=== PATIENT | male | born 1945 | race African-American/Black ===

== ENCOUNTER 2021-01-06 11:27 | Inpatient (IN) | payer MEDICARE, MEDICAID ==
[~2021-01-06] VITALS: Ht 170.2 cm; Wt 60.3 kg
[2021-01-06] MEDS ORDERED: ALBUTEROL (0.083%) 2.5MG/3ML NEB HHN STA (12:13)
[2021-01-06] MEDS ORDERED: NITROGLYCERIN OINT 1GM/INCH UDPKT TD ONE (12:15)
[2021-01-06] MEDS ORDERED: ASPIRIN 81MG TABLET PO ONE (12:15)
[2021-01-06 15:10] LABS: HEMOGLOBIN. 11.2 g/dL (14.0-18.0); MEAN CORPUSCULAR HEMOGLOBIN 30.8 pg (28.0-32.0); MEAN CORPUSCULAR VOLUME 93.3 fL (80.0-94.0); MEAN PLATELET VOLUME 8.7 fl (7.4-10.4); PLATELET 402 x1000/uL (130-400); RED BLOOD CELL COUNT 3.65 mill/uL (4.7-6.1); RED CELL DISTRIBUTION WIDTH 16.3 % (11.6-14.6)
[2021-01-06 15:12] LABS: CHLORIDE 95 mEq/L (98-107)
[2021-01-06 15:18] LABS: C REACTIVE PROTEIN QUANT 9.1 mg/L (0.0-3.0)
[2021-01-06 15:57] LABS: INR 0.9
[2021-01-06] MEDS ORDERED: PIPERACILLIN/TAZ 3.375G PREMIX 50 ML IV NR (16:00)
[2021-01-06] MEDS ORDERED: VANCOMYCIN 1 G PREMIX 200 ML IV NR (16:00)
[2021-01-06] MEDS ORDERED: ACETAMINOPHEN 325MG TABLET PO NR (16:00)
[2021-01-06 16:34] LABS: PLATELET ESTIMATE NORMAL
[2021-01-06] MEDS ORDERED: GUAIFENESIN 200MG/10ML SUGAR FREE UDC PO PRN (17:15)
[2021-01-06] MEDS ORDERED: ONDANSETRON HCL 4MG/2ML INJ IV PRN (17:15)
[2021-01-06] MEDS ORDERED: ACETAMINOPHEN 325MG TABLET PO PRN (17:15)
[2021-01-06] MEDS ORDERED: DEXTROSE 50% WATER 50ML SYRINGE IV PRN (18:30)
[2021-01-06] MEDS ORDERED: ALBUTEROL 6.7GM HFA INHALER ORI PRN (18:30)
[2021-01-06] MEDS: ENOXAPARIN 30MG/0.3ML SYR SUBCUT SCH (19:14)
[2021-01-06] MEDS: INSULIN LISPRO 100 UNITS/ML SUBCUT SCH (21:35)
[2021-01-06] MEDS: BLOOD SUGAR DIAGNOSTIC STRIP TEST SCH (21:35)
[2021-01-06 22:30] VITALS: BP 131/78
[2021-01-06] MEDS ORDERED: VANCOMYCIN 500 MG PREMIX 100 ML IV NR (23:00)
[2021-01-06] MEDS: PIPERACILLIN/TAZOBACTAM 3.375 G in DEXTROSE 5% WATER 50 ML IV SCH (23:57)
[2021-01-07] VITALS: BP 106/52
[2021-01-07] MEDS ORDERED: DOCU-138 PO (02:45)
[2021-01-07] MEDS ORDERED: MIDO10TA PO (02:45)
[2021-01-07] MEDS ORDERED: ASCO-339 PO (02:45)
[2021-01-07] MEDS ORDERED: TOPUD PO ×2 (02:45)
[2021-01-07] MEDS ORDERED: FERR325T6 PO (02:45)
[2021-01-07] MEDS ORDERED: SEVE800T8 PO (02:45)
[2021-01-07] MEDS ORDERED: TRAM50TA3 PO (02:45)
[2021-01-07] MEDS ORDERED: FOLI1TAB63 PO (02:45)
[2021-01-07 04:00] VITALS: BP 124/64
[2021-01-07] MEDS: BLOOD SUGAR DIAGNOSTIC STRIP TEST SCH ×4 (06:09→21:00)
[2021-01-07 08:00] VITALS: BP 136/62
[2021-01-07] MEDS: PIPERACILLIN/TAZOBACTAM 3.375 G in DEXTROSE 5% WATER 50 ML IV SCH ×2 (08:46→22:10)
[2021-01-07] MEDS: INSULIN LISPRO 100 UNITS/ML SUBCUT SCH ×4 (08:47→22:55)
[2021-01-07 09:39] LABS: HEMATOCRIT. 28.8 % (42.0-52.0); HEMOGLOBIN. 9.7 g/dL (14.0-18.0); MEAN CORPUSCULAR HEMOGLOBIN 31.2 pg (28.0-32.0); MEAN CORPUSCULAR VOLUME 92.7 fL (80.0-94.0); MEAN PLATELET VOLUME 8.1 fl (7.4-10.4); PLATELET 373 x1000/uL (130-400); RED BLOOD CELL COUNT 3.11 mill/uL (4.7-6.1); RED CELL DISTRIBUTION WIDTH 16.2 % (11.6-14.6)
[2021-01-07 09:49] LABS: CHLORIDE 97 mEq/L (98-107)
[2021-01-07 12:00] VITALS: BP 113/61
[2021-01-07 13:37] LABS: PLATELET ESTIMATE NORMAL
[2021-01-07 16:00] VITALS: BP 134/66
[2021-01-07 16:50] LABS: HEPATITIS B SURFACE ANTIGEN NEGATIVE
[2021-01-07] MEDS: ENOXAPARIN 30MG/0.3ML SYR SUBCUT SCH (18:05)
[2021-01-07 20:00] VITALS: BP 129/67
[2021-01-07] MEDS: ACETAMINOPHEN 325MG TABLET PO PRN (22:11)
[2021-01-07] MEDS: INSULIN GLARGINE UD 100 UNITS/ML SYR SUBCUT SCH (22:56)
[2021-01-08] VITALS: BP 129/72
[2021-01-08 04:00] VITALS: BP 132/69
[2021-01-08] MEDS: BLOOD SUGAR DIAGNOSTIC STRIP TEST SCH ×4 (06:42→21:19)
[2021-01-08 08:00] VITALS: BP 137/72
[2021-01-08] MEDS: INSULIN LISPRO 100 UNITS/ML SUBCUT SCH ×4 (09:24→21:22)
[2021-01-08] MEDS: PIPERACILLIN/TAZOBACTAM 3.375 G in DEXTROSE 5% WATER 50 ML IV SCH (09:25)
[2021-01-08 09:31] LABS: BASOPHILS % 0.4 % (0.0-2.0); EOSINOPHILS % 4.9 % (0.0-5.0); HEMATOCRIT. 27.2 % (42.0-52.0); HEMOGLOBIN. 9.2 g/dL (14.0-18.0); MEAN CORPUSCULAR HEMOGLOBIN 30.9 pg (28.0-32.0); MEAN CORPUSCULAR VOLUME 91.5 fL (80.0-94.0); MEAN PLATELET VOLUME 8.3 fl (7.4-10.4); MONOCYTES % 8.2 % (2.0-8.0); NEUTROPHILS % 77.5 % (40.0-76.0); PLATELET 369 x1000/uL (130-400); RED BLOOD CELL COUNT 2.98 mill/uL (4.7-6.1); RED CELL DISTRIBUTION WIDTH 16.3 % (11.6-14.6)
[2021-01-08 09:53] LABS: CHLORIDE 101 mEq/L (98-107)
[2021-01-08 10:04] LABS: PHOSPHORUS 4.8 mg/dL (2.5-4.9)
[2021-01-08 12:00] VITALS: BP 105/58
[2021-01-08 16:00] VITALS: BP 152/67
[2021-01-08] MEDS: ENOXAPARIN 30MG/0.3ML SYR SUBCUT SCH (18:13)
[2021-01-08 20:00] VITALS: BP 94/46
[2021-01-08] MEDS ORDERED: VANCOMYCIN 500 MG PREMIX 100 ML IV NR (20:00)
[2021-01-08] MEDS: INSULIN GLARGINE UD 100 UNITS/ML SYR SUBCUT SCH (21:21)
[2021-01-09] VITALS: BP 105/65
[2021-01-09] MEDS: PIPERACILLIN/TAZOBACTAM 3.375 G in DEXTROSE 5% WATER 50 ML IV SCH ×3 (00:13→20:58)
[2021-01-09 04:00] VITALS: BP 112/62
[2021-01-09 05:28] LABS: CHLORIDE 110 mEq/L (98-107)
[2021-01-09 05:36] LABS: PHOSPHORUS 4.2 mg/dL (2.5-4.9)
[2021-01-09 05:43] LABS: BASOPHILS % 0.6 % (0.0-2.0); EOSINOPHILS % 6.1 % (0.0-5.0); HEMATOCRIT. 30.5 % (42.0-52.0); LYMPHOCYTES % 10.1 % (20.0-50.0); MEAN CORPUSCULAR VOLUME 91.7 fL (80.0-94.0); MEAN PLATELET VOLUME 8.2 fl (7.4-10.4); MONOCYTES % 8.3 % (2.0-8.0); NEUTROPHILS % 74.9 % (40.0-76.0); PLATELET 398 x1000/uL (130-400); RED BLOOD CELL COUNT 3.32 mill/uL (4.7-6.1); RED CELL DISTRIBUTION WIDTH 16.5 % (11.6-14.6)
[2021-01-09] MEDS: BLOOD SUGAR DIAGNOSTIC STRIP TEST SCH ×4 (06:56→20:58)
[2021-01-09 08:15] VITALS: BP 117/66
[2021-01-09] MEDS: INSULIN LISPRO 100 UNITS/ML SUBCUT SCH ×5 (08:19→21:44)
[2021-01-09 12:00] VITALS: BP 122/49
[2021-01-09 16:12] VITALS: BP 127/60
[2021-01-09] MEDS: ENOXAPARIN 30MG/0.3ML SYR SUBCUT SCH (18:13)
[2021-01-09 20:00] VITALS: BP 117/55
[2021-01-09] MEDS: INSULIN GLARGINE UD 100 UNITS/ML SYR SUBCUT SCH (21:46)
[2021-01-10] VITALS (7 sets, daily range): BP systolic 98–142; BP diastolic 49–76
[2021-01-10 05:42] LABS: CHLORIDE 111 mEq/L (98-107)
[2021-01-10 05:51] LABS: BASOPHILS % 0.8 % (0.0-2.0); EOSINOPHILS % 7.5 % (0.0-5.0); HEMATOCRIT. 28.8 % (42.0-52.0); HEMOGLOBIN. 9.4 g/dL (14.0-18.0); LYMPHOCYTES % 13.6 % (20.0-50.0); MEAN CORPUSCULAR HEMOGLOBIN 30.5 pg (28.0-32.0); MEAN CORPUSCULAR VOLUME 93.9 fL (80.0-94.0); MEAN PLATELET VOLUME 8.3 fl (7.4-10.4); MONOCYTES % 10.8 % (2.0-8.0); NEUTROPHILS % 67.3 % (40.0-76.0); PLATELET 390 x1000/uL (130-400); RED BLOOD CELL COUNT 3.07 mill/uL (4.7-6.1); RED CELL DISTRIBUTION WIDTH 16.8 % (11.6-14.6)
[2021-01-10] MEDS: BLOOD SUGAR DIAGNOSTIC STRIP TEST SCH ×4 (06:31→21:55)
[2021-01-10] MEDS: INSULIN LISPRO 100 UNITS/ML SUBCUT SCH ×7 (07:50→21:00)
[2021-01-10] MEDS ORDERED: GUAIFENESIN/DM 600MG/30MG ER TAB 12HR PO PRN (08:15)
[2021-01-10] MEDS: PIPERACILLIN/TAZOBACTAM 3.375 G in DEXTROSE 5% WATER 50 ML IV SCH ×2 (08:51→21:52)
[2021-01-10] MEDS: GUAIFENESIN-DM 200MG-20MG/10ML UDC PO PRN ×2 (17:10→21:55)
[2021-01-10] MEDS: ENOXAPARIN 30MG/0.3ML SYR SUBCUT SCH (18:04)
[2021-01-10] MEDS: ACETAMINOPHEN 325MG TABLET PO PRN (21:52)
[2021-01-10] MEDS: INSULIN GLARGINE UD 100 UNITS/ML SYR SUBCUT SCH (21:56)
[2021-01-10 22:19] LABS: HEPATITIS B SURFACE ANTIGEN NEGATIVE
[2021-01-11 00:13] VITALS: BP 147/63
[2021-01-11 04:00] VITALS: BP 112/60
[2021-01-11] MEDS: BLOOD SUGAR DIAGNOSTIC STRIP TEST SCH ×4 (06:34→21:20)
[2021-01-11 06:36] LABS: CHLORIDE 109 mEq/L (98-107)
[2021-01-11] MEDS: INSULIN LISPRO 100 UNITS/ML SUBCUT SCH ×7 (06:36→21:20)
[2021-01-11 06:50] LABS: BASOPHILS % 0.9 % (0.0-2.0); EOSINOPHILS % 9.8 % (0.0-5.0); HEMATOCRIT. 26.1 % (42.0-52.0); HEMOGLOBIN. 8.8 g/dL (14.0-18.0); LYMPHOCYTES % 16.4 % (20.0-50.0); MEAN CORPUSCULAR HEMOGLOBIN 31.6 pg (28.0-32.0); MEAN PLATELET VOLUME 8.3 fl (7.4-10.4); MONOCYTES % 10.5 % (2.0-8.0); NEUTROPHILS % 62.4 % (40.0-76.0); PLATELET 384 x1000/uL (130-400); RED BLOOD CELL COUNT 2.78 mill/uL (4.7-6.1); RED CELL DISTRIBUTION WIDTH 16.3 % (11.6-14.6)
[2021-01-11] MEDS: PIPERACILLIN/TAZOBACTAM 3.375 G in DEXTROSE 5% WATER 50 ML IV SCH ×2 (07:50→21:18)
[2021-01-11 08:00] VITALS: BP 155/70
[2021-01-11] MEDS ORDERED: TUSSL PO (08:44)
[2021-01-11] MEDS ORDERED: ALBU6.7H9 ORI (08:44)
[2021-01-11 12:00] VITALS: BP 134/70
[2021-01-11 16:00] VITALS: BP 118/71
[2021-01-11] MEDS ORDERED: VANCOMYCIN 500 MG PREMIX 100 ML IV NR (17:00)
[2021-01-11] MEDS: ENOXAPARIN 30MG/0.3ML SYR SUBCUT SCH (18:15)
[2021-01-11 20:00] VITALS: BP 129/61
[2021-01-11] MEDS ORDERED: EPOETIN ALFA-EPBX 10,000 UNIT/ML VIAL SUBCUT SCH (21:00)
[2021-01-11] MEDS: INSULIN GLARGINE UD 100 UNITS/ML SYR SUBCUT SCH (21:20)
[2021-01-12] VITALS: BP 159/82
[2021-01-12 04:00] VITALS: BP 98/60
[2021-01-12] MEDS: BLOOD SUGAR DIAGNOSTIC STRIP TEST SCH ×2 (06:45→12:15)
[2021-01-12] MEDS: INSULIN LISPRO 100 UNITS/ML SUBCUT SCH ×4 (06:45→12:19)
[2021-01-12 08:00] VITALS: BP 133/62
[2021-01-12 12:00] VITALS: BP 115/55
[2021-01-12 13:39] VITALS: BP 133/62
== END 2021-01-12 14:44 | DRG 871 ==
LOC: ER 11:43 → EDBEDREQTM 16:21 → EDBEDREQ 16:21 → SUPCPDRO 16:53 → MICUSO 19:03 → 6WST 21:13
PROVIDERS: ADMIT Internal Medicine; ATTEND Internal Medicine
PROC: 5A1D70Z Performance of Urinary Filtration, Intermittent, Less than 6 Hours Per Day (ICD-10-PCS; principal; 2021-01-07)
PROC: 5A1D70Z Performance of Urinary Filtration, Intermittent, Less than 6 Hours Per Day (ICD-10-PCS; 2021-01-10)
PROC: 5A1D70Z Performance of Urinary Filtration, Intermittent, Less than 6 Hours Per Day (ICD-10-PCS; 2021-01-12)
DX: A41.9 Sepsis, unspecified organism (principal); N18.6 End stage renal disease; I12.0 Hypertensive chronic kidney disease with stage 5 chronic kidney disease or end stage renal disease; E46 Unspecified protein-calorie malnutrition; E87.1 Hypo-osmolality and hyponatremia; E11.22 Type 2 diabetes mellitus with diabetic chronic kidney disease; E11.40 Type 2 diabetes mellitus with diabetic neuropathy, unspecified; E78.00 Pure hypercholesterolemia, unspecified; J44.9 Chronic obstructive pulmonary disease, unspecified; K21.9 Gastro-esophageal reflux disease without esophagitis; R65.20 Severe sepsis without septic shock; E11.65 Type 2 diabetes mellitus with hyperglycemia; E11.51 Type 2 diabetes mellitus with diabetic peripheral angiopathy without gangrene; R07.2 Precordial pain; E78.5 Hyperlipidemia, unspecified; G40.909 Epilepsy, unspecified, not intractable, without status epilepticus; I87.8 Other specified disorders of veins; N40.0 Benign prostatic hyperplasia without lower urinary tract symptoms; E55.9 Vitamin D deficiency, unspecified; I95.3 Hypotension of hemodialysis; R00.0 Tachycardia, unspecified; G90.9 Disorder of the autonomic nervous system, unspecified; Z86.16 Personal history of COVID-19; Z99.2 Dependence on renal dialysis; Z86.73 Personal history of transient ischemic attack (TIA), and cerebral infarction without residual deficits; Z82.49 Family history of ischemic heart disease and other diseases of the circulatory system; Z68.20 Body mass index [BMI] 20.0-20.9, adult; Z20.822 Contact with and (suspected) exposure to COVID-19
CPT/HCPCS: 36415; 71045; 71046; 80053; 80202; 82728; 82962; 83036; 83605; 83735; 84100; 84145; 84484; 85025; 85384; 86140; 86705; 86709; 86803; 87340; 87426; 93005; 94640; 99291; J0885; J1650; J1815; J2543; J3370; J7040; J7060

== ENCOUNTER 2021-02-01 15:40 | Emergency (ER) | payer MEDICARE, MEDICAID ==
[~2021-02-01] VITALS: Ht 175.3 cm; Wt 60.0 kg
[~2021-02-01 15:40] MED LIST: ASCO-339 PO; DOCU-138 PO; FERR325T6 PO; FOLI1TAB63 PO; MIDO10TA PO; SEVE800T8 PO; TOPUD PO; TRAM50TA3 PO
[2021-02-01 16:49] LABS: CHLORIDE 97 mEq/L (98-107)
[2021-02-01 16:50] LABS: HEMATOCRIT. 30.6 % (42.0-52.0); HEMOGLOBIN. 10.6 g/dL (14.0-18.0); MEAN CORPUSCULAR HEMOGLOBIN 32.7 pg (28.0-32.0); MEAN CORPUSCULAR VOLUME 94.1 fL (80.0-94.0); MEAN PLATELET VOLUME 7.8 fl (7.4-10.4); PLATELET 405 x1000/uL (130-400); RED BLOOD CELL COUNT 3.25 mill/uL (4.7-6.1)
[2021-02-01 17:16] LABS: PLATELET ESTIMATE INCREASED
[2021-02-02] MEDS ORDERED: CLONIDINE 0.1MG TABLET PO ONE (09:00)
[2021-02-02 10:22] VITALS: BP 144/78
== END 2021-02-02 10:16 ==
LOC: ER 15:40
DX: R07.89 Other chest pain (principal); E11.22 Type 2 diabetes mellitus with diabetic chronic kidney disease; I12.0 Hypertensive chronic kidney disease with stage 5 chronic kidney disease or end stage renal disease; N18.6 End stage renal disease; E78.00 Pure hypercholesterolemia, unspecified; E03.9 Hypothyroidism, unspecified; Z99.2 Dependence on renal dialysis
CPT/HCPCS: 36415; 71045; 80053; 84484; 85025; 93005; 99285

== ENCOUNTER 2021-03-13 18:52 | Emergency (ER) | payer MEDICARE, MEDICAID ==
[~2021-03-13] VITALS: Ht 167.6 cm; Wt 68.0 kg
[2021-03-13 20:36] LABS: BASOPHILS % 0.9 % (0.0-2.0); EOSINOPHILS % 4.7 % (0.0-5.0); HEMATOCRIT. 27.9 % (42.0-52.0); HEMOGLOBIN. 9.6 g/dL (14.0-18.0); LYMPHOCYTES % 15.1 % (20.0-50.0); MEAN CORPUSCULAR HEMOGLOBIN 31.6 pg (28.0-32.0); MEAN CORPUSCULAR VOLUME 92.3 fL (80.0-94.0); MEAN PLATELET VOLUME 7.6 fl (7.4-10.4); MONOCYTES % 7.9 % (2.0-8.0); NEUTROPHILS % 71.4 % (40.0-76.0); PLATELET 442 x1000/uL (130-400); RED BLOOD CELL COUNT 3.03 mill/uL (4.7-6.1); RED CELL DISTRIBUTION WIDTH 15.6 % (11.6-14.6)
[2021-03-13 20:45] LABS: CHLORIDE 106 mEq/L (98-107)
[2021-03-13 22:47] LABS: INR 0.9; PROTHROMBIN TIME 9.9 sec (9.6-11.0)
[2021-03-13 23:32] LABS: CLARITY URINE TURBID (CLEAR); COLOR URINE YELLOW (YELLOW); KETONES URINE NEGATIVE (NEGATIVE); LEUKOCYTE ESTERASE URINE 3+ (NEGATIVE); NITRITE URINE NEGATIVE (NEGATIVE); OCCULT BLOOD URINE 2+ (NEGATIVE); PH URINE 8.5 (4.5-8.0); PROTEIN URINE 2+ (NEGATIVE); SPECIFIC GRAVITY URINE 1.013 (1.005-1.030); UROBILINOGEN URINE 0.2 E.U./dL (0.2-1.0)
[2021-03-13] MEDS ORDERED: CEPH500T MT (23:43)
[2021-03-13] MEDS ORDERED: CEFTRIAXONE 1 G PREMIX 50 ML IV NR (23:45)
[2021-03-14 09:18] VITALS: BP 164/83
== END 2021-03-14 09:21 | disposition home or self-care (01) ==
LOC: ER 18:52 → CANBEDREQ 03-14 08:02 → ER 03-14 09:21
DX: N39.0 Urinary tract infection, site not specified (principal); D64.9 Anemia, unspecified; E11.9 Type 2 diabetes mellitus without complications; E78.00 Pure hypercholesterolemia, unspecified; Z99.2 Dependence on renal dialysis; Z79.899 Other long term (current) drug therapy; Z88.6 Allergy status to analgesic agent
CPT/HCPCS: 36415; 71045; 74176; 80053; 81003; 83605; 83690; 84145; 84484; 85025; 85610; 87040; 87077; 87086; 87186; 93005; 96374; 99285; J0696

== ENCOUNTER 2021-04-22 11:11 | Inpatient (IN) | payer MEDICARE, MEDICAID ==
[~2021-04-22] VITALS: Ht 180.3 cm; Wt 58.3 kg
[~2021-04-22 11:11] MED LIST changes: +CEPH500T MT
[2021-04-22] MEDS ORDERED: MORPHINE SULFATE 4 MG/ML CPJ (NOT FOR IM USE) IV STA (12:24)
[2021-04-22 12:49] LABS: HEMATOCRIT. 30.6 % (42.0-52.0); HEMOGLOBIN. 10.1 g/dL (14.0-18.0); MEAN CORPUSCULAR HEMOGLOBIN 29.8 pg (28.0-32.0); MEAN CORPUSCULAR VOLUME 90.5 fL (80.0-94.0); MEAN PLATELET VOLUME 7.6 fl (7.4-10.4); PLATELET 348 x1000/uL (130-400); RED BLOOD CELL COUNT 3.38 mill/uL (4.7-6.1); RED CELL DISTRIBUTION WIDTH 16.9 % (11.6-14.6)
[2021-04-22 12:58] LABS: CHLORIDE 97 mEq/L (98-107)
[2021-04-22 13:25] LABS: PLATELET ESTIMATE NORMAL
[2021-04-22] MEDS ORDERED: CEFTRIAXONE 1 G PREMIX 50 ML IV ONE (15:30)
[2021-04-22] MEDS ORDERED: IPRATROPIUM/ALBUTEROL 0.5-3(2.5)MG/3ML NEB NEB PRN (21:00)
[2021-04-22] MEDS ORDERED: CLONIDINE 0.1MG TABLET PO PRN (21:00)
[2021-04-22] MEDS: DEXT 5%/LACTATED RINGERS 1,000 ML IV SCH (21:00)
[2021-04-22] MEDS ORDERED: DOCUSATE SODIUM 100MG CAPSULE PO PRN (21:00)
[2021-04-22] MEDS ORDERED: ONDANSETRON HCL 4MG/2ML INJ IV PRN (21:00)
[2021-04-22] MEDS ORDERED: NITROGLYCERIN 0.4MG TABLET SL SL PRN (21:00)
[2021-04-22] MEDS ORDERED: MAGNESIUM/ALUMINUM HYDROXIDE/SIMETHICONE 30ML UDC PO PRN (21:00)
[2021-04-22] MEDS ORDERED: ZOLPIDEM TARTRATE 5MG TABLET PO PRN (21:00)
[2021-04-22] MEDS ORDERED: GUAIFENESIN 200MG/10ML SUGAR FREE UDC PO PRN (21:00)
[2021-04-22] MEDS ORDERED: ACETAMINOPHEN 325MG TABLET PO PRN ×2 (21:00)
[2021-04-22] MEDS ORDERED: DIPHENHYDRAMINE 50MG/ML VIAL IV PRN (21:00)
[2021-04-22] MEDS ORDERED: NALOXONE HCL 0.4MG/ML VIAL IV PRN (21:45)
[2021-04-22] MEDS ORDERED: PIPERACILLIN/TAZ 3.375G PREMIX 50 ML IV NR (22:00)
[2021-04-23] VITALS (7 sets, daily range): BP systolic 114–131; BP diastolic 62–80
[2021-04-23] MEDS: PIPERACILLIN/TAZOBACTAM 3.375 G in DEXTROSE 5% WATER 50 ML IV SCH ×2 (06:07→21:28)
[2021-04-23] MEDS: PANTOPRAZOLE SODIUM 40 MG/VIAL IV SCH (08:43)
[2021-04-23] MEDS: ENOXAPARIN 30MG/0.3ML SYR SUBCUT SCH (08:43)
[2021-04-23] MEDS: MORPHINE SULFATE 2 MG/ML CPJ (NOT FOR IM USE) IV PRN ×2 (08:48→19:02)
[2021-04-23 11:52] LABS: HEMATOCRIT. 36.3 % (42.0-52.0); HEMOGLOBIN. 11.6 g/dL (14.0-18.0); MEAN CORPUSCULAR HEMOGLOBIN 29.1 pg (28.0-32.0); MEAN CORPUSCULAR VOLUME 90.5 fL (80.0-94.0); MEAN PLATELET VOLUME 8.4 fl (7.4-10.4); PLATELET 434 x1000/uL (130-400); RED CELL DISTRIBUTION WIDTH 16.9 % (11.6-14.6)
[2021-04-23] MEDS ORDERED: DEXTROSE 50% WATER 50ML SYRINGE IV PRN (12:00)
[2021-04-23 12:02] LABS: CHLORIDE 93 mEq/L (98-107)
[2021-04-23 12:06] LABS: PHOSPHORUS 5.4 mg/dL (2.5-4.9)
[2021-04-23 12:44] LABS: PLATELET ESTIMATE SLIGHTLY INCREASED
[2021-04-23] MEDS: INSULIN LISPRO 100 UNITS/ML SUBCUT SCH ×3 (13:14→21:00)
[2021-04-23] MEDS ORDERED: LIDOCAINE HCL 1% 20ML VIAL (Pyxis) INJ ONE (15:24)
[2021-04-23] MEDS: BLOOD SUGAR DIAGNOSTIC STRIP TEST SCH ×2 (16:40→21:27)
[2021-04-23] MEDS: DEXT 5%/LACTATED RINGERS 1,000 ML IV SCH (18:20)
[2021-04-24] VITALS: BP 113/67
[2021-04-24] MEDS: MORPHINE SULFATE 2 MG/ML CPJ (NOT FOR IM USE) IV PRN ×3 (00:23→11:59)
[2021-04-24 04:00] VITALS: BP 158/64
[2021-04-24] MEDS: INSULIN LISPRO 100 UNITS/ML SUBCUT SCH ×4 (06:01→22:21)
[2021-04-24] MEDS: BLOOD SUGAR DIAGNOSTIC STRIP TEST SCH ×4 (06:02→21:00)
[2021-04-24 08:00] VITALS: BP 116/67
[2021-04-24] MEDS: PIPERACILLIN/TAZOBACTAM 3.375 G in DEXTROSE 5% WATER 50 ML IV SCH ×2 (11:58→23:01)
[2021-04-24 12:00] VITALS: BP 149/71
[2021-04-24] MEDS: PANTOPRAZOLE SODIUM 40 MG/VIAL IV SCH (12:56)
[2021-04-24] MEDS: ENOXAPARIN 30MG/0.3ML SYR SUBCUT SCH (12:56)
[2021-04-24] MEDS: DEXT 5%/LACTATED RINGERS 1,000 ML IV SCH ×2 (13:17→22:20)
[2021-04-24 16:00] VITALS: BP 122/53
[2021-04-24 20:00] VITALS: BP_SYST 118; BP_SYST 136; BP_DIAS 69; BP_DIAS 90
[2021-04-25] VITALS: BP 112/56
[2021-04-25] MEDS: MORPHINE SULFATE 2 MG/ML CPJ (NOT FOR IM USE) IV PRN (01:57)
[2021-04-25 04:00] VITALS: BP 102/34
[2021-04-25] MEDS: BLOOD SUGAR DIAGNOSTIC STRIP TEST SCH ×4 (06:31→21:00)
[2021-04-25] MEDS: INSULIN LISPRO 100 UNITS/ML SUBCUT SCH ×4 (06:38→21:00)
[2021-04-25 07:08] LABS: BASOPHILS % 0.4 % (0.0-2.0); EOSINOPHILS % 2.8 % (0.0-5.0); HEMATOCRIT. 29.1 % (42.0-52.0); HEMOGLOBIN. 9.6 g/dL (14.0-18.0); LYMPHOCYTES % 7.6 % (20.0-50.0); MEAN CORPUSCULAR HEMOGLOBIN 29.7 pg (28.0-32.0); MEAN CORPUSCULAR VOLUME 90.3 fL (80.0-94.0); MEAN PLATELET VOLUME 8.4 fl (7.4-10.4); MONOCYTES % 9.7 % (2.0-8.0); NEUTROPHILS % 79.5 % (40.0-76.0); PLATELET 387 x1000/uL (130-400); RED BLOOD CELL COUNT 3.23 mill/uL (4.7-6.1); RED CELL DISTRIBUTION WIDTH 16.6 % (11.6-14.6)
[2021-04-25 07:25] LABS: CHLORIDE 102 mEq/L (98-107)
[2021-04-25 07:39] LABS: PHOSPHORUS 4.6 mg/dL (2.5-4.9)
[2021-04-25 08:00] VITALS: BP 119/68
[2021-04-25] MEDS: ENOXAPARIN 30MG/0.3ML SYR SUBCUT SCH (09:25)
[2021-04-25] MEDS: PIPERACILLIN/TAZOBACTAM 3.375 G in DEXTROSE 5% WATER 50 ML IV SCH ×2 (09:25→21:50)
[2021-04-25] MEDS: PANTOPRAZOLE SODIUM 40 MG/VIAL IV SCH (09:25)
[2021-04-25 12:00] VITALS: BP 125/57
[2021-04-25 16:00] VITALS: BP 143/68
[2021-04-25 18:23] LABS: HEPATITIS B SURFACE ANTIGEN NEGATIVE
[2021-04-25 20:00] VITALS: BP 128/62
[2021-04-26] VITALS: BP 118/63
[2021-04-26 04:00] VITALS: BP 128/72
[2021-04-26] MEDS: DEXT 5%/LACTATED RINGERS 1,000 ML IV SCH (05:10)
[2021-04-26] MEDS: BLOOD SUGAR DIAGNOSTIC STRIP TEST SCH ×4 (05:42→21:00)
[2021-04-26] MEDS: INSULIN LISPRO 100 UNITS/ML SUBCUT SCH ×4 (06:14→21:00)
[2021-04-26 08:00] VITALS: BP 124/58
[2021-04-26] MEDS: ENOXAPARIN 30MG/0.3ML SYR SUBCUT SCH (08:43)
[2021-04-26] MEDS: PANTOPRAZOLE SODIUM 40 MG/VIAL IV SCH (08:43)
[2021-04-26] MEDS: PIPERACILLIN/TAZOBACTAM 3.375 G in DEXTROSE 5% WATER 50 ML IV SCH ×2 (08:43→21:49)
[2021-04-26 12:00] VITALS: BP 140/64
[2021-04-26 16:00] VITALS: BP 108/70
[2021-04-26 20:00] VITALS: BP 134/67
[2021-04-26] MEDS: MORPHINE SULFATE 2 MG/ML CPJ (NOT FOR IM USE) IV PRN (20:37)
[2021-04-27] VITALS: BP 118/62
[2021-04-27 04:00] VITALS: BP 188/53
[2021-04-27] MEDS: DEXT 5%/LACTATED RINGERS 1,000 ML IV SCH ×2 (05:28→23:19)
[2021-04-27] MEDS: FAMOTIDINE 20MG/2ML VIAL IV SCH (05:28)
[2021-04-27] MEDS: MORPHINE SULFATE 2 MG/ML CPJ (NOT FOR IM USE) IV PRN (05:29)
[2021-04-27] MEDS: BLOOD SUGAR DIAGNOSTIC STRIP TEST SCH ×4 (05:57→20:56)
[2021-04-27] MEDS: INSULIN LISPRO 100 UNITS/ML SUBCUT SCH ×4 (06:08→21:01)
[2021-04-27 08:00] VITALS: BP 154/71
[2021-04-27] MEDS: ENOXAPARIN 30MG/0.3ML SYR SUBCUT SCH (08:43)
[2021-04-27] MEDS: PIPERACILLIN/TAZOBACTAM 3.375 G in DEXTROSE 5% WATER 50 ML IV SCH (08:43)
[2021-04-27 11:45] LABS: INR 1.1; PROTHROMBIN TIME 11.9 sec (9.6-11.0)
[2021-04-27 12:00] VITALS: BP 129/60
[2021-04-27 13:23] LABS: CHLORIDE 103 mEq/L (98-107); HEMATOCRIT. 27.8 % (42.0-52.0); HEMOGLOBIN. 9.3 g/dL (14.0-18.0); MEAN CORPUSCULAR VOLUME 89.3 fL (80.0-94.0); MEAN PLATELET VOLUME 8.3 fl (7.4-10.4); PLATELET 379 x1000/uL (130-400); RED BLOOD CELL COUNT 3.11 mill/uL (4.7-6.1); RED CELL DISTRIBUTION WIDTH 16.2 % (11.6-14.6)
[2021-04-27 14:31] LABS: PLATELET ESTIMATE NORMAL
[2021-04-27 16:00] VITALS: BP 153/76
[2021-04-27 20:00] VITALS: BP 118/76
[2021-04-27] MEDS ORDERED: EPOETIN ALFA-EPBX 4,000 UNIT/ML VIAL SUBCUT SCH (21:00)
[2021-04-28] VITALS (21 sets, daily range): BP systolic 130–172; BP diastolic 68–98
[2021-04-28] MEDS ORDERED: MORPHINE SULFATE 2 MG/ML CPJ (NOT FOR IM USE) IV PRN ×2 (03:30→08:45)
[2021-04-28] MEDS: FAMOTIDINE 20MG/2ML VIAL IV SCH (05:52)
[2021-04-28] MEDS: BLOOD SUGAR DIAGNOSTIC STRIP TEST SCH ×4 (05:52→20:25)
[2021-04-28] MEDS: INSULIN LISPRO 100 UNITS/ML SUBCUT SCH ×4 (06:04→20:50)
[2021-04-28] MEDS ORDERED: FENTANYL CITRATE/PF 50MCG/ML 2ML VIAL ONE (07:33)
[2021-04-28] MEDS ORDERED: IOHEXOL-300 50 ML BOTTLE IV ONE (07:34)
[2021-04-28] MEDS ORDERED: LIDOCAINE HCL 1% 20ML VIAL (Pyxis) INJ ONE (07:34)
[2021-04-28] MEDS ORDERED: FENTANYL CITRATE/PF 50MCG/ML 2ML VIAL IV ONE (08:30)
[2021-04-28] MEDS: ENOXAPARIN 30MG/0.3ML SYR SUBCUT SCH (09:00)
[2021-04-28] MEDS ORDERED: TRAMADOL 50MG TABLET PO PRN (13:00)
[2021-04-28] MEDS: DEXT 5%/LACTATED RINGERS 1,000 ML IV SCH (17:07)
[2021-04-29] VITALS: BP 141/75
[2021-04-29 04:00] VITALS: BP 137/70
[2021-04-29] MEDS: BLOOD SUGAR DIAGNOSTIC STRIP TEST SCH ×2 (06:40→11:40)
[2021-04-29] MEDS: FAMOTIDINE 20MG/2ML VIAL IV SCH (06:42)
[2021-04-29] MEDS: INSULIN LISPRO 100 UNITS/ML SUBCUT SCH ×2 (06:43→12:40)
[2021-04-29 08:00] VITALS: BP 159/70
[2021-04-29] MEDS: ENOXAPARIN 30MG/0.3ML SYR SUBCUT SCH (09:48)
[2021-04-29 12:00] VITALS: BP 143/78
[2021-04-29] MEDS: DEXT 5%/LACTATED RINGERS 1,000 ML IV SCH (13:02)
[2021-04-29 13:03] VITALS: BP 143/78
[2021-04-29 17:10] LABS: HEPATITIS B SURFACE ANTIGEN NEGATIVE
[2021-04-29] MEDS ORDERED: EPOETIN ALFA-EPBX 10,000 UNIT/ML VIAL SUBCUT SCH (21:00)
== END 2021-04-29 15:30 | DRG 444 ==
LOC: ER 11:25 → 7EST 16:35 → EDBEDREQ 16:43 → EDBEDREQTM 16:43 → CANRESERV 20:25 → ENRESERV 20:25 → SUPCPDRO 21:39 → EDBEDREQTM 22:18 → EDBEDREQSVC 22:18 → ENRESERV 23:03
PROVIDERS: ADMIT Internal Medicine; ATTEND Internal Medicine
PROC: 02HV33Z Insertion of Infusion Device into Superior Vena Cava, Percutaneous Approach (ICD-10-PCS; principal; 2021-04-23)
PROC: B548ZZA Ultrasonography of Superior Vena Cava, Guidance (ICD-10-PCS; 2021-04-23)
PROC: 5A1D70Z Performance of Urinary Filtration, Intermittent, Less than 6 Hours Per Day (ICD-10-PCS; 2021-04-25)
PROC: 5A1D70Z Performance of Urinary Filtration, Intermittent, Less than 6 Hours Per Day (ICD-10-PCS; 2021-04-27)
PROC: 0F9430Z Drainage of Gallbladder with Drainage Device, Percutaneous Approach (ICD-10-PCS; 2021-04-28)
PROC: 5A1D70Z Performance of Urinary Filtration, Intermittent, Less than 6 Hours Per Day (ICD-10-PCS; 2021-04-29)
DX: K80.00 Calculus of gallbladder with acute cholecystitis without obstruction (principal); E43 Unspecified severe protein-calorie malnutrition; N18.6 End stage renal disease; I50.33 Acute on chronic diastolic (congestive) heart failure; I13.2 Hypertensive heart and chronic kidney disease with heart failure and with stage 5 chronic kidney disease, or end stage renal disease; E87.1 Hypo-osmolality and hyponatremia; T82.898A Other specified complication of vascular prosthetic devices, implants and grafts, initial encounter; R65.10 Systemic inflammatory response syndrome (SIRS) of non-infectious origin without acute organ dysfunction; D63.8 Anemia in other chronic diseases classified elsewhere; E11.22 Type 2 diabetes mellitus with diabetic chronic kidney disease; E78.00 Pure hypercholesterolemia, unspecified; Y83.2 Surgical operation with anastomosis, bypass or graft as the cause of abnormal reaction of the patient, or of later complication, without mention of misadventure at the time of the procedure; E11.21 Type 2 diabetes mellitus with diabetic nephropathy; E11.40 Type 2 diabetes mellitus with diabetic neuropathy, unspecified; F02.80 Dementia in other diseases classified elsewhere, unspecified severity, without behavioral disturbance, psychotic disturbance, mood disturbance, and anxiety; E78.5 Hyperlipidemia, unspecified; Z20.822 Contact with and (suspected) exposure to COVID-19; E55.9 Vitamin D deficiency, unspecified; I95.3 Hypotension of hemodialysis; N35.919 Unspecified urethral stricture, male, unspecified site; R07.89 Other chest pain; G40.909 Epilepsy, unspecified, not intractable, without status epilepticus; Z82.49 Family history of ischemic heart disease and other diseases of the circulatory system; Z86.73 Personal history of transient ischemic attack (TIA), and cerebral infarction without residual deficits; Z99.2 Dependence on renal dialysis; Z88.8 Allergy status to other drugs, medicaments and biological substances; Z79.899 Other long term (current) drug therapy; Z79.4 Long term (current) use of insulin; Z98.1 Arthrodesis status
CPT/HCPCS: 36415; 36573; 47490; 71045; 71275; 74174; 76705; 78227; 80053; 82962; 83036; 83735; 84100; 85025; 86705; 86709; 86803; 87340; 87426; 93970; 99152; 99153; 99291; A9537; C1725; C1729; C1769; C1893; C9113; J0696; J0885; J1650; J1815; J2270; J2543; J3010; J3490; J7040; J7060; L8514; Q9967; G0500